=== PATIENT | female | born 1965 | race Caucasian/White ===

== ENCOUNTER → 2017-12-20 | Outpatient (CLI) | payer MEDICARE ==
--- NOTE | 2017-12-24 10:54 | MM ---
Reason for exam: screening (asymptomatic). Last mammogram was performed 4 years and 3 months ago. History: Patient is nulliparous. Family history of breast cancer in mother at age 64. Physical Findings: A clinical breast exam by your physician is recommended on an annual basis and results should be correlated with mammographic findings. MG 3D Screening Mammo W/Cad Bilateral CC and MLO view(s) were taken. Prior study comparison: September 26, 2013, bilateral digital screening mammo w/CAD. February 27, 2012, bilateral digital screening mammo w/CAD. The breast tissue is heterogeneously dense. This may lower the sensitivity of mammography. Stable skin calcifications. Nodule upper outer right breast 6.7cm from nipple. ASSESSMENT: Incomplete: need additional imaging evaluation, BI-RAD 0 RECOMMENDATION: Special view mammogram and ultrasound of the right breast. [facility] will attempt to contact patient to return for supplemental views and ultrasound.
== END | disposition home or self-care (01) ==
LOC: RADMAMWWP 15:58
PROVIDERS: ATTEND Family Medicine
DX: Z12.31 Encounter for screening mammogram for malignant neoplasm of breast (principal)
CPT/HCPCS: 77063; 77067

== ENCOUNTER → 2017-12-27 | Outpatient (CLI) | payer MEDICARE ==
--- NOTE | 2017-12-28 09:16 | MM ---
Reason for exam: additional evaluation requested from abnormal screening. Last mammogram was performed less than 1 month ago. History: Patient is nulliparous. Family history of breast cancer in mother at age 64. Physical Findings: Nurse did not find any significant physical abnormalities on exam. MG 3D Work Up W/Cad RT CC and MLO view(s) were taken of the right breast. Prior study comparison: December 20, 2017, bilateral MG 3d screening mammo w/cad. September 26, 2013, bilateral digital screening mammo w/CAD. The breast tissue is heterogeneously dense. This may lower the sensitivity of mammography. Nodule upper outer quadrant right breast persists. Ultrasound is recommended. These results were verbally communicated with the patient and result sheet given to the patient on 12/27/17. ASSESSMENT: Incomplete: need additional imaging evaluation, BI-RAD 0 RECOMMENDATION: Ultrasound of the right breast.
--- NOTE | 2017-12-28 09:18 | USB ---
Reason for exam: additional evaluation requested from abnormal screening. History: Patient is nulliparous. Family history of breast cancer in mother at age 64. US Breast Workup Limited RT Right breast ultrasound demonstrates a 1.1 x 0.4 x 0.8cm mixed lesion at 10 o'clock. These results were verbally communicated with the patient and result sheet given to the patient on 12/27/17. ASSESSMENT: Suspicious, BI-RAD 4 RECOMMENDATION: Ultrasound core biopsy of the right breast. Called Dr. Yao with mammographic findings and has scheduled an appointment for the patient for 02/13/18 at 1:[address] Weston. Biopsy scheduled for 01/03/18 at 2:00. PRELIMINARY REPORT CALLED AND FAXED TO DR. WESTON ON 12/28/17.
== END | disposition home or self-care (01) ==
LOC: RADMAMWWP 14:36
PROVIDERS: ATTEND Family Medicine
DX: R92.8 Other abnormal and inconclusive findings on diagnostic imaging of breast (principal)
CPT/HCPCS: 77065; 76642; G0279

== ENCOUNTER → 2018-01-03 | Day surgery (SDC) | payer MEDICARE ==
[2018-01-03 13:39] VITALS: RESP 16; BMI 34.9
--- NOTE | 2018-01-03 14:58 | USB ---
EXAMINATION TYPE: US biopsy breast VAD RT, MG diagnostic mammo RT wo CAD DATE OF EXAM: 01/03/2018 CLINICAL HISTORY: R92.8 ABNORMAL MAMMOGRAM. Abnormal ultrasound. TECHNIQUE: Ultrasound guided core biopsy of right breast with clip placement and follow-up two-view m ammogram. COMPARISON: Right breast ultrasound and mammogram December 27, 2017 and older studies. FINDINGS: The procedure of ultrasound guided core biopsy was explained to the patient. Benefits, alt ernatives, and risks were discussed. An informed consent was then obtained. The patient was placed in supine positioning for imaging and for the procedure. Preprocedure ultraso und redemonstrates oval wider greater than trough heterogeneous slightly hypoechoic area measuring 9 x 5 mm 10:00 position zone B seen in the right breast. The overlying skin was prepped and draped in u sual sterile fashion. Lidocaine buffered with bicarbonate was used as anesthetic into the skin and s ubcutaneous tissue up to area of concern in the right breast. Lidocaine with epinephrine is used as a nesthetic into the deeper tissue. Under ultrasound guidance, a 12-gauge vacuum assisted biopsy gun device was used to obtain 3 core [address]es. Following this, a biopsy clip was left in lesion. The patient tolerated the procedure well without any immediate complication. The patient was kept in the radiology department for short stay after the procedure and then discharged home in stable condi tion. Postprocedure mammogram shows successful deployment of clip at area of mammogram concern upper outer aspect anterior to middle depth. Previously visualized oval lesion is not clearly identified on 2-D m ammogram views. IMPRESSION: Successful, uncomplicated ultrasound guided core biopsy of area of concern in the right b reast, full pathology results to follow. Low to intermediate index of suspicion noted at time of procedure.
[2018-01-03 16:34] VITALS: BP 110/81; PULSE 101; TEMP 99
== END ==
LOC: RADUSWWP 13:08
PROVIDERS: ATTEND Surgery
DX: D24.1 Benign neoplasm of right breast (principal); N60.31 Fibrosclerosis of right breast
CPT/HCPCS: 77065; 19083; A4648; J2001; 88305

== ENCOUNTER → 2018-08-08 | Outpatient (CLI) | payer MEDICARE ==
--- NOTE | 2018-08-08 14:36 | MM ---
Reason for exam: follow-up at short interval from prior study. Last mammogram was performed 7 months ago. History: Patient is postmenopausal and is nulliparous. Family history of breast cancer in mother at age 64. Benign US biopsy breast VAD RT of the right breast, January 03, 2018. Physical Findings: Nurse did not find any significant physical abnormalities on exam. MG 3D Diag Mammo W/Cad RT CC and MLO view(s) were taken of the right breast. Prior study comparison: January 03, 2018, right breast MG diagnostic mammo RT wo CAD. December 27, 2017, right breast MG 3d work up w/cad RT. There are scattered fibroglandular densities. These results were verbally communicated with the patient and result sheet given to the patient on 08/08/18. ASSESSMENT: Benign, BI-RAD 2 RECOMMENDATION: Routine screening mammogram of both breasts in 4 months.
== END ==
LOC: RADMAMWWP 13:18
PROVIDERS: ATTEND Surgery
DX: R92.8 Other abnormal and inconclusive findings on diagnostic imaging of breast (principal)
CPT/HCPCS: 77065; G0279; 77061

== ENCOUNTER → 2019-03-25 | Outpatient (CLI) | payer MEDICARE ==
--- NOTE | 2019-03-26 09:39 | MM ---
Reason for exam: screening (asymptomatic). Last mammogram was performed 8 months ago. History: Patient is postmenopausal and is nulliparous. Family history of breast cancer in mother at age 64. Benign US biopsy breast VAD RT of the right breast, January 03, 2018. Physical Findings: A clinical breast exam by your physician is recommended on an annual basis and results should be correlated with mammographic findings. MG 3D Screening Mammo W/Cad Bilateral CC and MLO view(s) were taken. Prior study comparison: August 08, 2018, right breast MG 3d diag mammo w/cad RT. January 03, 2018, right breast MG diagnostic mammo RT wo CAD. The breast tissue is heterogeneously dense. This may lower the sensitivity of mammography. Benign appearing calcifications in the left breast. Previous mammotome biopsy in the right breast. There is chronic nodularity bilaterally. No significant changes when compared with prior studies. ASSESSMENT: Benign, BI-RAD 2 RECOMMENDATION: Routine screening mammogram of both breasts in 1 year.
== END | disposition home or self-care (01) ==
LOC: RADMAMWWP 14:35
PROVIDERS: ATTEND Family Medicine
DX: Z12.31 Encounter for screening mammogram for malignant neoplasm of breast (principal)
CPT/HCPCS: 77063; 77067

== ENCOUNTER → 2022-04-06 | Outpatient (CLI) | payer MEDICARE ==
[2022-04-06 16:36] LABS: INR 0.9 (<1.2); Partial Thromboplastin Time 25.9 sec (22.0-30.0); Prothrombin Time 10.2 sec (9.0-12.0)
[2022-04-06 22:57] LABS: MCH 29.7 pg (27.0-32.0); MCHC 32.6 g/dL (32.0-37.0); MCV 91.1 fL (80.0-97.0); Mean Platelet Volume 10.7 fL (9.5-12.2); NRBC Per 100 WBC 0 /100 WBCS (0.0-0.0); Platelet Count 288 X 10*3/uL (140-440); RBC 4.72 X 10*6/uL (4.10-5.20); WBC 7.57 X 10*3/uL (4.50-10.00)
[2022-04-07 00:49] LABS: Appearance,Urine Clear (Clear); Bilirubin,Urine Negative (Negative); Blood,Urine Negative (Negative); Color,Urine Yellow (Yellow); Ketones,Urine Negative (Negative); Nitrite,Urine Negative (Negative); Specific Gravity,Urine 1.009 (1.001-1.030); Urobilinogen,Urine 0.2 (0.2,1.0)
== END | disposition home or self-care (01) ==
LOC: LABPAT 15:37
PROVIDERS: ATTEND Orthopaedic Surgery
DX: Z01.812 Encounter for preprocedural laboratory examination (principal); M16.12 Unilateral primary osteoarthritis, left hip
CPT/HCPCS: 81003; 85027; 85610; 85730; 87070

== ENCOUNTER → 2022-04-07 | Outpatient (CLI) | payer MEDICARE ==
[2022-04-08 00:14] LABS: African American GFR (CKD) 109.6 (60.0-200.0); Albumin/Globulin Ratio 2.23 (1.60-3.17); Anion Gap 18.1 mmol/L (10.00-18.00); BUN/Creat Ratio 13.08 Ratio (12.00-20.00); Blood Urea Nitrogen 9.3 mg/dL (9.0-27.0); Calcium 9.7 mg/dL (8.7-10.3); Carbon Dioxide 24.3 mmol/L (20.0-27.5); Globulin 2.2 g/dL (1.6-3.3); Non-African American GFR(CKD) 94.5 (60.0-200.0); Potassium 4.2 mmol/L (3.5-5.5); Total Bilirubin 0.2 mg/dL (0.30-1.20); Total Protein 7.2 g/dL (6.2-8.2)
== END | disposition home or self-care (01) ==
LOC: LABPAT 14:54
PROVIDERS: ATTEND Orthopaedic Surgery
DX: Z01.812 Encounter for preprocedural laboratory examination (principal); M16.12 Unilateral primary osteoarthritis, left hip
CPT/HCPCS: 80053

== ENCOUNTER 2022-04-12 10:54 | Day surgery (SDC) | payer MEDICARE ==
[2022-04-05 14:43] VITALS: BMI 29.3
[~2022-04-12 10:54] MED LIST: ACETAMINOPHEN TAB 500 MG TAB PO PRN; DOCUSATE 100 MG CAP PO PRN; FAMOTIDINE 20 MG/2 ML VIAL IVP PRN; HYDROmorphone 0.5 MG/0.5 ML SYRINGE IVP PRN; KETOROLAC 15 MG/ML 1 ML VIAL IVP PRN; MIDAZOLAM 2 MG/2 ML VIAL IV PRN; ONDANSETRON 4 MG/2 ML VIAL IVP PRN; Pre Op ABX Message 1 EACH MISC MISCELLANE ONE; ROPIVACAINE/EPI/CLONIDINE/KET 50 ML SYRINGE MISCELLANE PRN; TRANEXAMIC ACID 1,000 MG in SODIUM CHLORIDE 0.9% 100 ML IVPB ONE; TRANEXAMIC ACID IN NACL,ISO-OS 1,000 MG in SALINE 1 100ML.BAG IVPB PRN; oxyCODONE ER 10 MG TAB.ER.12H PO PRN
[2022-04-12] MEDS: LACTATED RINGERS 1,000 ML IV SCH (11:40)
[2022-04-12] MEDS ORDERED: MIDAZOLAM 2 MG/2 ML VIAL IVP ONE (12:27)
[2022-04-12] MEDS ORDERED: fentaNYL (PF) 50 MCG/ML 2 ML AMP IVP ONE (12:27)
[2022-04-12] MEDS ORDERED: SODIUM CHLORIDE 0.9% (PF) 10 ML VIAL ONE (12:38)
[2022-04-12] MEDS ORDERED: ROPIVACAINE 5 MG/ML 30 ML VIAL ONE (12:38)
[2022-04-12] MEDS ORDERED: LIDOCAINE 2% INJ 20 MG/ML (2 ML VIAL) ONE (12:38)
[2022-04-12] MEDS ORDERED: NEOSTIGMINE 1 MG/ML 10 ML VIAL ONE (12:38)
[2022-04-12] MEDS ORDERED: ROCURONIUM 10 MG/ML (5 ML VIAL) IV ONE (12:38)
[2022-04-12] MEDS ORDERED: PROPOFOL 10 MG/ML 20 ML VIAL IV ONE (12:38)
[2022-04-12] MEDS ORDERED: GLYCOPYRROLATE 0.2 MG/ML 2 ML VIAL ONE (12:38)
[2022-04-12] MEDS ORDERED: PHENYLEPHRINE-0.9% NACL SYG 1,000 MCG/10 ML SYRINGE ONE (12:38)
[2022-04-12] MEDS ORDERED: HYDROmorphone (PF) 1 MG/ML ONE (12:38)
[2022-04-12] MEDS ORDERED: TRANEXAMIC ACID IN NACL,ISO-OS 1,000 MG/100 ML BAG ONE (12:38)
[2022-04-12] MEDS ORDERED: MIDAZOLAM 2 MG/2 ML VIAL ONE (12:38)
[2022-04-12] MEDS ORDERED: SUCCINYLCHOLINE CHLORIDE 100 MG/5 ML SYR IV ONE (12:38)
[2022-04-12] MEDS ORDERED: fentaNYL (PF) 50 MCG/ML 2 ML AMP ONE (12:38)
[2022-04-12] MEDS ORDERED: LACTATED RINGERS 1,000 ML IV ONE (15:07)
--- NOTE | 2022-04-12 15:20 | XR ---
Fluoroscopy HISTORY: Hip replacement 43 seconds fluoroscopy time supplied to the referring clinician. 5 intraoperative C-arm images docum ent the procedure. See dictated report from orthopedic surgery.
[2022-04-12] MEDS ORDERED: NALOXONE 0.4 MG/ML 1 ML VIAL IV PRN (15:28)
[2022-04-12] MEDS ORDERED: HYDROmorphone 0.5 MG/0.5 ML SYRINGE IVP PRN ×2 (15:28)
[2022-04-12] MEDS ORDERED: HYDROcodone/APAP 5-325MG 1 EACH TAB PO PRN ×2 (15:28)
[2022-04-12] MEDS ORDERED: hydrOXYzine pamoate 25 MG CAP PO PRN (15:28)
--- NOTE | 2022-04-12 15:34 | P.OP ---
Date of Procedure: 04/12/22 Preoperative Diagnosis: 1. Severe left hip osteoarthritis 2. Former cigarette smoker, quit 03/08/2022 3. Bipolar/Anxiety Postoperative Diagnosis: same Procedure(s) Performed: Left direct anterior total hip arthroplasty Implants: 1. [place] Trident II Acetabular Cup, Size #50 2. Abi Accolade II Insignia Size #5 Femoral Stem, High Offset 3. Biolox Delta 36 mm femoral head, -2.5 mm, neck Anesthesia: GETA Surgeon: Jonathan Reich [employer] Equipment Sales Manager #1: Manuel Romero Estimated Blood Loss (ml): 200 IV fluids (ml): 1,200 Pathology: none sent Condition: stable Disposition: PACU Indications for Procedure: I had a long discussion with the patient in the office on the potential risks and complications of an elective total hip replacement through a direct anterior approach. Risks discussed include, but are certainly not limited to, risks from anesthesia, superficial infection requiring local wound care or antibiotics, deep helder-prosthetic joint infection and the treatment required to eradicate infection, intraoperative fracture, postoperative periprosthetic fracture, damage to local blood vessels or nerves particularly the lateral femoral cutaneous nerve, delayed wound healing requiring local wound care or possibly surgical debridement, hip dislocation, leg length discrepancy, soft tissue irritation around the total hip implant such as iliopsoas tendinitis or trochanteric bursitis, wear and osteolysis from the implants, squeaking or audible noises, groin pain, thigh pain, heterotopic ossification, stiffness, aseptic loosening of the implants, dissatisfaction with surgical outcome, need for revision surgery, DVT, PE, swelling of the operative extremity, acute coronary event, stroke, failure to thrive, and possibly loss of life or limb. The patient understands that while these are the most common complications after an elective hip replacement there are certainly other less common complications possible. They were given ample time to ask questions regarding the potential c omplications of a hip replacement. Following our discussion the patient provided their verbal and written consent to go forward with an elective total hip replacement. Operative Findings: Pre-operatively the patient noticed that her left leg was significantly shorter than her right. Intraoperatively before being placed on the hand table her left leg felt approximately 1-2 cm short compared to the right leg. Description of Procedure: The patient was identified in the preoperative holding area and the correct hip was marked with my initials. I reviewed the procedure and consent with the patient. All of their questions were answered. The patient was then brought back into the operating room by anesthesia. While on the [facility] anesthesia was administered by the anesthesia team. Preoperative antibiotics and tranexamic acid were also given. After the patient was under anesthesia I examined their ankles to determine their preoperative leg length discrepancy. The skin over the anterior aspect of the hip was shaved to remove hair over the site of planned incision. Both feet and ankles were padded with webril and boots for the [place] were applied. The patient was then carefully transferred onto the [place] table. A perineal post was immediately placed. The arms were placed on arm holders and were well-padded. Both boots were secured to the spars on the [place] table. The patient was positioned so that the pelvis was centered over the post. Nonsterile drapes were applied. A timeout was performed identifying the correct patient, operative extremity, and procedure. At this point fluoroscopy was brought in to take preoperative images of the pelvis and operative hip. Using the standing AP pelvis from the office as a template, a comparable image was obtained with fluoroscopy. A metallic bar was used to create a bi-ischial line for use as a reference to leg length adjustments during the procedure. Global offset was also measured on both the operative and nonoperative leg. Fluoroscopy was then brought out and a pre-scrub using a chlorhexidine scrub brush was performed. The operative limb was then prepped and draped in the standard sterile fashion. An anterior longitudinal incision was made lateral and distal to the ASIS. The skin and subcutaneous tissues were incised sharply. The underlying tensor fascia was identified and incised in its midportion. The fascia was dissected free from the underlying muscle and the muscle belly was retracted. A blunt tipped cobra retractor was placed over the superior neck under the muscle fibers of the gluteus minimus. The deep enveloping fascia of the tensor was incised. The anterior leash of vessels were then identified and cauterized. The fascia between the rectus and the capsule was then incised and the pre-capsular fat was excised. A second Cobra was placed inferior to the neck. The interval between the rectus and iliocapsularis and the hip capsule was developed and a retractor was placed carefully over the anterior rim of the acetabulum. A T-shaped anterior capsulotomy was performed. The superior capsular leaflet was left in place in the inferior capsular flap was excised. The Cobra retractors were placed intracapsularly. We then made a femoral neck osteotomy according to preoperative and intraoperative templating and confirmed the level of the osteotomy using fluoroscopic imaging. The femoral head was removed, passed off to the back table, and sized. The superior capsular flap was excised. Retractors were placed circumferentially exposing the acetabulum. We then circumferentially debrided the acetabulum free of labrum and osteophytes. The pulvinar was removed to fully visualize the cotyloid fossa. We then sequentially reamed to achieve peripheral fit and excellent bleeding subchondral bone. The socket was thoroughly irrigated. The acetabular component was impacted into the appropriate position using fluoroscopy to guide version, inclination, and depth of insertion taking care to have a comparable image of the AP pelvis to the standing image taken in the office. An excellent press-fit was achieved and final position was confirmed using fluoroscopy. The press fit was augmented with bony cancellus dome screws. The liner was then impacted into the socket. Attention was then turned to the femur. The remnant dorsal lateral capsule was excised. The short external rotators were visible and protected. A bone hook was used to confirm appropriate translation of the trochanter away from the acetabulum. The leg was then extended and adducted and the bone hook was used to elevate the femur for broaching. A box osteotome and blunt tipped canal sound was then utilized to gain access to the femoral canal. We then sequentially broached the femur in appropriate anteversion until excellent torsional stability was achieved. The neck cut was brought flush to the trial broach with a calcar planar. A trial neck and head were then placed onto the broach and the hip was atraumatically reduced under direct visualization. External rotation to 90 was performed to assess stability. Fluoroscopy was brought in. An AP and lateral fluoroscopic image of the proximal femur was obtained to assess position and fill of the trial broach. An AP of the pelvis was then obtained and matched to the preoperative image taken. A bi-ischial bar was then placed and measurements were taken to assess changes in length and offset. The hip was then carefully dislocated, the proximal femur was exposed, and the trial implants were removed. The wound and proximal femur was thoroughly irrigated using sterile saline and pulsatile lavage. The final femoral implant was dispensed and gently tapped into place generating an e xcellent press-fit. The trunnion was cleansed and the final head was tapped into place to engage the Sanchez taper. The acetabulum was irrigated and visualized to be free of debris. The hip was carefully reduced. Stability was checked clinically with external rotation to 90 and there was no evidence of instability. Final fluoroscopic images were taken. The wound was then thoroughly irrigated and soaked with a dilute Betadine rinse for 3 minutes. 3 L of sterile saline was irrigated through the wound using pulsatile lavage. Local anesthetic cocktail was injected into the soft tissues around the surgical field. A deep drain was placed. The wound was then closed in layers. A sterile dressing was placed over the surgical incision and drain site. The drapes were taken down and the patient was carefully transferred off of the [place] table. Following removal of the boots the leg lengths felt acceptable. The patient was then taken to recovery room having tolerated the procedure well. Manuel Romero PA-C was required as a skilled contact center assistant for patient positioning, surgical exposure, retraction, placement of implants, and closure of the surgical wound. PLAN: The patient can weight-bear as tolerated on the operative extremity. 2 doses of postoperative antibiotics. DVT prophylaxis with aspirin 81 mg twice a day based on preoperative risk stratification. Physical therapy for gait training. Discontinue drain postoperative day #1 if output is less than 100 mL per shift.
[2022-04-12] MEDS ORDERED: diphenhydrAMINE 50 MG/ML 1 ML VIAL IVP ONE (15:55)
[2022-04-12] MEDS: HYDROmorphone 1 MG/ML 1 ML SYRINGE IVP PRN (17:21)
[2022-04-12] MEDS ORDERED: MELATONIN 5 MG TABLET PO PRN (19:00)
[2022-04-12] MEDS ORDERED: ALBUTEROL NEBULIZED 2.5 MG/3 ML INHALATION PRN (19:00)
[2022-04-12] MEDS ORDERED: DICYCLOMINE 10 MG CAP PO PRN (19:00)
[2022-04-12] MEDS ORDERED: ALBUTEROL INHALATION PRN (19:00)
[2022-04-12] MEDS ORDERED: QUEtiapine 100 MG TAB PO SCH (21:00)
[2022-04-12] MEDS ORDERED: FENOFIBRATE 160 MG TAB PO SCH (21:00)
[2022-04-12] MEDS ORDERED: SENNOSIDES-DOCUSATE SODIUM 1 EACH TAB PO SCH (21:00)
[2022-04-12] MEDS ORDERED: ATORVASTATIN 80 MG TAB PO SCH (21:00)
[2022-04-12] MEDS ORDERED: SERTRALINE 100 MG TAB PO SCH (21:00)
[2022-04-12] MEDS: LORazepam 1 MG TAB PO SCH (22:20)
[2022-04-12] MEDS: busPIRone HCl 5 MG TAB PO SCH (22:21)
[2022-04-12] MEDS: ASPIRIN 81 MG PO SCH (22:21)
[2022-04-12] MEDS: lamoTRIgine 100 MG TAB PO SCH (22:21)
[2022-04-12] MEDS: SUCRALFATE 1 GM TAB PO SCH (22:38)
[2022-04-13] MEDS ORDERED: ONDANSETRON 4 MG/2 ML VIAL IVP PRN (02:31)
[2022-04-13] MEDS ORDERED: ONDANSETRON 4 MG/2 ML VIAL IVP STA (02:31)
[2022-04-13] MEDS ORDERED: LEVOTHYROXINE 88 MCG TAB PO SCH (06:30)
[2022-04-13] MEDS: HYDROmorphone 1 MG/ML 1 ML SYRINGE IVP PRN (07:42)
--- NOTE | 2022-04-13 07:42 | P.ANPRN ---
Procedure Note - Anesthesia - Nerve Block Performed Left Erector Spinae Time Out Performed: Yes (12:26) Date of Procedure: 04/12/22 Procedure Start Time: : Procedure Stop Time: :38 Location of Patient: PreOp Indication: Acute Post-Operative Pain, Requested by Surgeon (Dr Reich) Sedation Type: Sedate with meaningful contact maintained Preparation: Sterile Prep Position: Prone Catheter: None Needle Types: Pajunk Needle Gauge: 21 Ultrasound used to visualize needle placement: Yes Ultrasound used to observe medication spread: Yes Injectate: 0.5% Ropivacaine (see comment for volume) (15cc + 5cc PF Normal saline) Blood Aspirated: No Pain Paresthesia on Injection Noted: No Resistance on Injection: Normal Image Stored and Saved: Yes Events: Uneventful and Well Tolerated
[2022-04-13] MEDS: lamoTRIgine 100 MG TAB PO SCH (08:48)
[2022-04-13] MEDS: SUCRALFATE 1 GM TAB PO SCH ×2 (08:49→12:18)
[2022-04-13] MEDS: LORazepam 1 MG TAB PO SCH ×2 (08:49→12:18)
[2022-04-13] MEDS: busPIRone HCl 5 MG TAB PO SCH (08:49)
[2022-04-13] MEDS: ASPIRIN 81 MG PO SCH (08:50)
[2022-04-13 09:27] VITALS: BP 118/73; PULSE 88; RESP 16; TEMP 97.6
[2022-04-13 10:18] LABS: Basophils # (A) 0.03 X 10*3/uL (0.00-0.10); Basophils % (A) 0.3 %; Eosinophils # (A) 0.02 X 10*3/uL (0.04-0.35); Eosinophils % (A) 0.2 %; HCT 29.6 % (37.2-46.3); HGB 9.6 g/dL (12.0-15.0); Immature Grans, Automated 0.6 %; Lymphocytes # (A) 1.21 X 10*3/uL (0.90-5.00); Lymphocytes % (A) 11.9 %; MCH 29.4 pg (27.0-32.0); MCHC 32.4 g/dL (32.0-37.0); MCV 90.8 fL (80.0-97.0); Mean Platelet Volume 10.5 fL (9.5-12.2); Monocytes # (A) 0.82 X 10*3/uL (0.20-1.00); Monocytes % (A) 8.1 %; NRBC Per 100 WBC 0 /100 WBCS (0.0-0.0); Neutrophils # (A) 7.99 X 10*3/uL (1.80-7.70); Neutrophils % (A) 78.9 %; Platelet Count 262 X 10*3/uL (140-440); RBC 3.26 X 10*6/uL (4.10-5.20); RDW 13.1 % (11.5-14.5); WBC 10.13 X 10*3/uL (4.50-10.00)
[2022-04-13] MEDS: LACTATED RINGERS 1,000 ML IV SCH (10:58)
--- NOTE | 2022-04-13 12:22 | P.DS ---
Providers Expected date of discharge: 04/13/22 Attending physician: Jonathan Reich Consults: 04/12/22 15:28 Consult Physician Routine Consulting Provider: Diego Castro Consult Reason/Comments: medical management Do you want consulting provider notified?: Yes Primary care physician: Forest Yao [facility] Course: This is a 56-year-old female who has been followed in our office by Dr. Reich for continued complaints of left hip pain due to left hip osteoarthritis. Treatment options were discussed, and patient elected to undergo a direct anterior left total hip arthroplasty. Patient was seen pre-operatively by Dr. Yao and cleared for surgery. Patient underwent a direct anterior left total hip arthroplasty on 04/12/22. The procedure was performed without complication or sequelae. The patient is doing fairly well postoperatively. Vital signs and labs are stable on postoperative day #1. Patient was examined bedside today. Patient states she is overall doing very well and the pain in his left hip is well-controlled. Hemovac drain was pulled earlier this morning. She has been ambulating with a walker with minimal assistance. She has worked with physical therapy this morning. Patient is tolerating breakfast well. She is voiding without issue. Patient is comfortable being discharged home today. Patient denies chest pain, shortness of breath, nausea, vomiting, fevers, chills. On examination, the patient is sitting up in the bed in no apparent distress. She is alert and orientated 3. On inspection of the left hip, there is a clean, dry, intact surgical dressing in place. There is no bleeding or drainage the dressing. Hemovac drain has been removed. Patient has good strength and ROM of the left ankle and toes. Motor and sensory function is intact of the left lower extremity. Femoral nerve function intact. The dorsalis pedis pulse is easily palpable, the left lower extremity is warm and well perfused with brisk capillary refill. Calf is soft and non-tender to palpation. Patient is discharged home with home health in good condition, pending medical clearance. Patient will follow-up with Dr. Reich in the office in 2 weeks. Please see med rec for accurate list of discharge medication. Plan - Discharge Summary Discharge Rx Participant: Yes New Discharge Prescriptions: New Diclofenac Sodium [Voltaren] 75 mg PO BID 30 Days #60 tab Aspirin 81 mg PO BID 30 Days #60 tab Docusate [Colace] 100 mg PO BID #60 capsule HYDROcodone/APAP 5-325MG [White 5-325] 1 - 2 tab PO Q6HR PRN #40 tab PRN Reason: Pain Omeprazole 40 mg PO DAILY 30 Days #30 cap No Action Acetaminophen-Codeine 300-30mg [Tylenol #3] 2 tab PO Q6H PRN PRN Reason: Pain Sucralfate [Carafate] 1 gm PO QID Meloxicam 15 mg PO DAILY methocarbamoL [Robaxin] 750 mg PO QID hydroCHLOROthiazide [Hydrodiuril] 25 mg PO DAILY Dicyclomine [Bentyl] 10 mg PO TID Lansoprazole [Prevacid] 30 mg PO BID flaxseed oiL [[place]-3 Flaxseed Oil] 1,000 mg PO DAILY gemfibroziL [Lopid] 600 mg PO BID Albuterol Inhaler [Ventolin Hfa Inhaler] 1 - 2 puff INHALATION Q6HR PRN PRN Reason: Wheezing Torsemide [Demadex] 10 mg PO DAILY SILVER sulfADIAZINE Cream [Silvadene 1% Cream] 1 applic TOPICAL BID PRN PRN Reason: burn Propranolol HCl 40 mg PO BID busPIRone HCl [Buspar] 15 mg PO TID Sertraline HCl [Zoloft] 200 mg PO HS lamoTRIgine [LaMICtal] 150 mg PO 0900,2100 Zolpidem [Ambien] 10 mg PO HS Dextroamphetamine/Amphetamine [Adderall] 10 mg PO 0800,1200 LORazepam [Ativan] 2 mg PO QID QUEtiapine [SEROquel] 300 mg PO HS Vitamin E (Dl,Tocopheryl Acet) [Vitamin E (400 Iu = 180 mg)] 400 unit PO DAILY Menopause Support Supplement 1 tab PO BID Magnesium 250 mg PO BID Ergocalciferol [Vitamin D2 (1250 Mcg = 68847 Iu)] 50,000 unit PO FR Multivit with Calcium,Iron,Min [Women's Multivitamin] 1 each PO DAILY Melatonin [Melatonin ER] 20 mg PO DAILY methylPREDNISolone [Medrol] 8 mg PO DAILY PRN PRN Reason: Pain Levothyroxine Sodium [Synthroid] 88 mcg PO QAM Cetirizine HCl [Zyrtec] 10 mg PO QAM Fluticasone Nasal [place] [Flonase Nasal [place]] 1 spray EA NOSTRIL DAILY Atorvastatin [Lipitor] 80 mg PO HS Albuterol Neb Unknown Dose 1 dose INHALATION DIRECTED PRN PRN Reason: Shortness Of Breath Discharge Medication List Acetaminophen-Codeine 300-30mg [Tylenol #3] 2 tab PO Q6H PRN 01/02/18 [History] Albuterol Inhaler [Ventolin Hfa Inhaler] 1 - 2 puff INHALATION Q6HR PRN 01/02/18 [History] Dextroamphetamine/Amphetamine [Adderall] 10 mg PO 0800,1200 01/02/18 [History] Dicyclomine [Bentyl] 10 mg PO TID 01/02/18 [History] LORazepam [Ativan] 2 mg PO QID 01/02/18 [History] Lansoprazole [Prevacid] 30 mg PO BID 01/02/18 [History] Meloxicam 15 mg PO DAILY 01/02/18 [History] Propranolol HCl 40 mg PO BID 01/02/18 [History] SILVER sulfADIAZINE Cream [Silvadene 1% Cream] 1 applic TOPICAL BID PRN 01/02/18 [History] Sertraline HCl [Zoloft] 200 mg PO HS 01/02/18 [History] Sucralfate [Carafate] 1 gm PO QID 01/02/18 [History] Torsemide [Demadex] 10 mg PO DAILY 01/02/18 [History] Zolpidem [Ambien] 10 mg PO HS 01/02/18 [History] busPIRone HCl [Buspar] 15 mg PO TID 01/02/18 [History] flaxseed oiL [[place]-3 Flaxseed Oil] 1,000 mg PO DAILY 01/02/18 [History] gemfibroziL [Lopid] 600 mg PO BID 01/02/18 [History] hydroCHLOROthiazide [Hydrodiuril] 25 mg PO DAILY 01/02/18 [History] lamoTRIgine [LaMICtal] 150 mg PO 0900,2100 01/02/18 [History] methocarbamoL [Robaxin] 750 mg PO QID 01/02/18 [History] Albuterol Neb Unknown Dose 1 dose INHALATION DIRECTED PRN 04/05/22 [History] Atorvastatin [Lipitor] 80 mg PO HS 04/05/22 [History] Cetirizine HCl [Zyrtec] 10 mg PO QAM 04/05/22 [History] Ergocalciferol [Vitamin D2 (1250 Mcg = 40691 Iu)] 50,000 unit PO FR 04/05/22 [History] Fluticasone Nasal [place] [Flonase Nasal [place]] 1 spray EA NOSTRIL DAILY 04/05/22 [History] Levothyroxine Sodium [Synthroid] 88 mcg PO QAM 04/05/22 [History] Magnesium 250 mg PO BID 04/05/22 [History] Melatonin [Melatonin ER] 20 mg PO DAILY 04/05/22 [History] Menopause Support Supplement 1 tab PO BID 04/05/22 [History] Multivit with Calcium,Iron,Min [Women's Multivitamin] 1 each PO DAILY 04/05/22 [History] QUEtiapine [SEROquel] 300 mg PO HS 04/05/22 [History] Vitamin E (Dl,Tocopheryl Acet) [Vitamin E (400 Iu = 180 mg)] 400 unit PO DAILY 04/05/22 [History] methylPREDNISolone [Medrol] 8 mg PO DAILY PRN 04/05/22 [History] Aspirin 81 mg PO BID 30 Days #60 tab 04/13/22 [Rx] Diclofenac Sodium [Voltaren] 75 mg PO BID 30 Days #60 tab 04/13/22 [Rx] Docusate [Colace] 100 mg PO BID #60 capsule 04/13/22 [Rx] HYDROcodone/APAP 5-325MG [White 5-325] 1 - 2 tab PO Q6HR PRN #40 tab 04/13/22 [Rx] Omeprazole 40 mg PO DAILY 30 Days #30 cap 04/13/22 [Rx] Follow up Appointment(s)/Referral(s): Forest Yao III, MD [Primary Care Provider] - 1 Week (office not answering. Please call to schedule appointment) [facility] [NON-STAFF] - As Needed (Walker) [facility], [NON-STAFF] - As Needed Jonathan Reich MD [Medical Doctor] - 04/27/22 9:35 am Activity/Diet/Wound Care/Special Instructions: Weight bear as tolerated on operative extremity with a walker. Keep operative dressings intact until follow-up in the office. Call the office if dressing becomes saturated or falls off. Take pain medication as needed. Take aspirin 81mg twice a day for blood clot prevention. Follow-up at [facility] in two weeks. Call the office with any questions or concerns, Discharge Disposition: HOME WITH HOME HEALTH SERVICES
[2022-04-13] MEDS ORDERED: methocarbamoL 750 MG TAB PO SCH (13:00)
--- NOTE | 2022-04-13 13:06 | P.CONS ---
History of Present Illness - History of Present Illness This is a pleasant 56 results female with past medical history of fibromyalgia, GERD, hyperlipidemia, hypertension, osteoarthritis, seizure disorder, hypothyroidism. History of bipolar disorder, depression and anxiety and ADD She was admitted by orthopedic team for severe osteoarthritis and she underwent left total hip arthroplasty. Today is postoperative day #1. Patient was seen in walking in her room in the hallway with no difficulty with the physical therapist. Denies any chest pain or dyspnea. No abdominal pain. No urinary complaints. No fever today She was complaining of from muscle spasm and she wanted only her Robaxin To be reordered Vitals are stable. Patient is afebrile she has fever yesterday of 100.1 Labs from today showing the same thing 0.1, hemoglobin 9.6. Rest of CBC is unremarkable. Review of Systems Review of systems CONSTITUTIONAL: No fever, no malaise, no fatigue. HEENT: No recent visual problems or hearing problems. Denied any sore throat. CARDIOVASCULAR: No orthopnea, PND, no palpitations, no syncope. PULMONARY: No shortness of breath, no cough, no hemoptysis. GASTROINTESTINAL: No diarrhea, no nausea, no vomiting, no abdominal pain. Normoactive bowel sounds. NEUROLOGICAL: No headaches, no weakness, no numbness. HEMATOLOGICAL: Denies any bleeding or petechiae. GENITOURINARY: Denies any burning micturition, frequency, or urgency. MUSCULOSKELETAL/RHEUMATOLOGICAL: Denies any joint pain, swelling, or any muscle pain. ENDOCRINE: Denies any polyuria or polydipsia. Past Medical History Past Medical History: Asthma, Fibromyalgia, GERD/Reflux, GI Bleed, Hyperlipidemia, Hypertension, Osteoarthritis (OA), Pneumonia, Seizure Disorder, Thyroid Disorder Additional Past Medical History / Comment(s): IBS, hx minor upper GI bleed, chronic back pain, tremors, small hiatal hernia, hx grand mal seizures starting at age 4 months, last seizure 04/16/83, slightly hard of hearing left ear. History of Any Multi-Drug Resistant Organisms: MRSA Year Discovered:: 1995 MDRO Source:: Respiratory Past Surgical History: Back Surgery, Uterine Ablation Additional Past Surgical History / Comment(s): Laser surgery on cervix, multiple D&C's, miscarriage, wisdom teeth extracted. Past Anesthesia/Blood Transfusion Reactions: Postoperative Nausea & Vomiting (PONV) Past Psychological History: ADD/ADHD, Anxiety, Bipolar, Depression Additional Psychological History / Comment(s): ADHD Smoking Status: Former smoker Past Alcohol Use History: None Reported Additional Past Alcohol Use History / Comment(s): Quit smoking 03/08/22. Smoked on and off for at least 30 yrs. Using Nicotine lozenges as needed. Past Drug Use History: None Reported - Past Family History Mother Family Medical History: Cancer Additional Family Medical History / Comment(s): Breast and cervical cancer. Medications and Allergies Home Medications Medication Instructions Recorded Confirmed Type Acetaminophen-Codeine 300-30mg 2 tab PO Q6H PRN 01/02/18 04/12/22 History [Tylenol #3] Albuterol Inhaler [Ventolin Hfa 1 - 2 puff INHALATION Q6HR PRN 01/02/18 04/12/22 History Inhaler] Dextroamphetamine/Amphetamine 10 mg PO 0800,1200 01/02/18 04/12/22 History [Adderall] Dicyclomine [Bentyl] 10 mg PO TID 01/02/18 04/12/22 History LORazepam [Ativan] 2 mg PO QID 01/02/18 04/12/22 History Lansoprazole [Prevacid] 30 mg PO BID 01/02/18 04/12/22 History Meloxicam 15 mg PO DAILY 01/02/18 04/12/22 History Propranolol HCl 40 mg PO BID 01/02/18 04/12/22 History SILVER sulfADIAZINE Cream 1 applic TOPICAL BID PRN 01/02/18 04/12/22 History [Silvadene 1% Cream] Sertraline HCl [Zoloft] 200 mg PO HS 01/02/18 04/12/22 History Sucralfate [Carafate] 1 gm PO QID 01/02/18 04/12/22 History Torsemide [Demadex] 10 mg PO DAILY 01/02/18 04/12/22 History Zolpidem [Ambien] 10 mg PO HS 01/02/18 04/12/22 History busPIRone HCl [Buspar] 15 mg PO TID 01/02/18 04/12/22 History flaxseed oiL [[place]-3 Flaxseed Oil] 1,000 mg PO DAILY 01/02/18 04/12/22 History gemfibroziL [Lopid] 600 mg PO BID 01/02/18 04/12/22 History hydroCHLOROthiazide [Hydrodiuril] 25 mg PO DAILY 01/02/18 04/12/22 History lamoTRIgine [LaMICtal] 150 mg PO 0900,2100 01/02/18 04/12/22 History methocarbamoL [Robaxin] 750 mg PO QID 01/02/18 04/12/22 History Albuterol Neb Unknown Dose 1 dose INHALATION DIRECTED PRN 04/05/22 04/12/22 History Atorvastatin [Lipitor] 80 mg PO HS 04/05/22 04/12/22 History Cetirizine HCl [Zyrtec] 10 mg PO QAM 04/05/22 04/12/22 History Ergocalciferol [Vitamin D2 (1250 50,000 unit PO FR 04/05/22 04/12/22 History Mcg = 11050 Iu)] Fluticasone Nasal [place] [Flonase 1 spray EA NOSTRIL DAILY 04/05/22 04/12/22 History Nasal [place]] Levothyroxine Sodium [Synthroid] 88 mcg PO QAM 04/05/22 04/12/22 History Magnesium 250 mg PO BID 04/05/22 04/12/22 History Melatonin [Melatonin ER] 20 mg PO DAILY 04/05/22 04/12/22 History Menopause Support Supplement 1 tab PO BID 04/05/22 04/12/22 History Multivit with Calcium,Iron,Min 1 each PO DAILY 04/05/22 04/12/22 History [Women's Multivitamin] QUEtiapine [SEROquel] 300 mg PO HS 04/05/22 04/12/22 History Vitamin E (Dl,Tocopheryl Acet) 400 unit PO DAILY 04/05/22 04/12/22 History [Vitamin E (400 Iu = 180 mg)] methylPREDNISolone [Medrol] 8 mg PO DAILY PRN 04/05/22 04/12/22 History Aspirin 81 mg PO BID 30 Days #60 tab 04/13/22 Rx Diclofenac Sodium [Voltaren] 75 mg PO BID 30 Days #60 tab 04/13/22 Rx Docusate [Colace] 100 mg PO BID #60 capsule 04/13/22 Rx HYDROcodone/APAP 5-325MG [[place] 1 - 2 tab PO Q6HR PRN #40 tab 04/13/22 Rx 5-325] Omeprazole 40 mg PO DAILY 30 Days #30 cap 04/13/22 Rx Allergies Allergy/AdvReac Type Severity Reaction Status Date / Time Iodinated Contrast Media Allergy Anaphylaxis Verified 04/12/22 11:23 [Iodinated Contrast- Oral and IV Dye] amoxicillin [From Augmentin] AdvReac Diarrhea Verified 04/12/22 11:23 clavulanic acid AdvReac Diarrhea Verified 04/12/22 11:23 [From Augmentin] gabapentin [From Neurontin] AdvReac Unknown Verified 04/12/22 11:23 prednisone AdvReac Unknown Verified 04/12/22 11:23 risperidone AdvReac "Pituitary Verified 04/12/22 11:23 tumor." Physical Exam Vitals: Vital Signs Temp Pulse Pulse Pulse Pulse Resp BP 04/13/22 08:00 97.6 F 88 16 118/73 04/13/22 07:30 120 H 18 04/13/22 07:18 118 H 18 04/13/22 02:00 99.2 F 100 15 103/64 04/12/22 20:00 97.8 F 81 16 103/68 04/12/22 18:00 67 129/83 04/12/22 17:45 74 131/85 04/12/22 17:30 76 127/86 04/12/22 17:15 77 115/82 04/12/22 17:00 72 111/78 04/12/22 16:45 72 111/77 04/12/22 16:30 97.4 F L 76 18 113/78 04/12/22 16:05 82 18 120/76 04/12/22 15:50 84 18 110/65 04/12/22 15:35 83 18 116/66 04/12/22 15:23 100.1 F H 99 18 121/83 04/12/22 12:38 76 16 143/83 04/12/22 11:21 97.8 F 18 131/90 Pulse Ox 04/13/22 08:00 95 04/13/22 07:30 04/13/22 07:18 96 04/13/22 02:00 98 04/12/22 20:00 99 04/12/22 18:00 100 04/12/22 17:45 100 04/12/22 17:30 100 04/12/22 17:15 100 04/12/22 17:00 99 04/12/22 16:45 99 04/12/22 16:30 100 04/12/22 16:05 100 04/12/22 15:50 100 04/12/22 15:35 04/12/22 15:23 100 04/12/22 12:38 98 04/12/22 11:21 97 Intake and Output 04/12/22 04/13/22 04/13/22 22:59 06:59 14:59 Intake Total 436 1080 Output Total 200 130 Balance 236 950 Intake: IV 140 Lactated Ringers 1,000 ml 40 @ 20 mls/hr IV .Q24H TO Rx#:[id number] Oral 296 1080 Output: Drainage 130 Left Hip 130 Estimated Blood Loss 200 Other: Voiding Method Toilet # Voids 1 Weight 88.5 kg GENERAL: The patient is alert and oriented x3, not in any acute distress. Well developed, well nourished. HEENT: Pupils are round and equally reacting to light. EOMI. No scleral icterus. No conjunctival pallor. Normocephalic, atraumatic. No pharyngeal erythema. No thyromegaly. CARDIOVASCULAR: S1 and S2 present. No murmurs, rubs, or gallops. PULMONARY: Chest is clear to auscultation, no wheezing or crackles. ABDOMEN: Soft, nontender, nondistended, normoactive bowel sounds. No palpable organomegaly. -MUSCULOSKELETAL: No joint swelling or deformity. left sided lower extremity surgical wound, with dressing in place. Rest of exam is deferred to surgery team EXTREMITIES: No cyanosis, clubbing, or pedal edema. NEUROLOGICAL: Gross neurological examination did not reveal any focal deficits. SKIN: No rashes. no petechiae. Results CBC & Chem 7: 04/13/22 06:00 Assessment and Plan Assessment: Severe as osteoarthritis status post left total hip replacement. today is postop day #1 Fever 1, most likely is postop fever. Unlikely due to infection however patient needs to be closely monitored. Postop anemia, expected and asymptomatic Fibromyalgia History of bipolar disorder Hypertension History of seizure disorder History of hypothyroidism History of bipolar disorder, depression and anxiety and ADD, no an active issue Plan: This is a pleasant 56 years old female she is status post total hip replacement. Patient CBC is reviewed and shows one-time episode of fever, keep close altagracia toring for vitals and WBC count Continue with pain management as per primary team Continue with DVT prophylaxis as per primary team I talked to the patient about the need to close outpatient follow-up with PCP Dr. Yao in one week, however patient declined and she was to follow up with him in 2 weeks. Risks and benefits and alternatives are explained for the patient GI prophylaxis These recommendations are discussed with the bedside nurse thank you for consulting us
== END 2022-04-13 13:50 | disposition home health service (06) ==
LOC: OR 10:54 → 4SSUR 16:06 → OR 04-13 13:50
PROVIDERS: ATTEND Orthopaedic Surgery
DX: M16.12 Unilateral primary osteoarthritis, left hip (principal); F31.9 Bipolar disorder, unspecified; G40.909 Epilepsy, unspecified, not intractable, without status epilepticus; J45.909 Unspecified asthma, uncomplicated; K21.9 Gastro-esophageal reflux disease without esophagitis; K58.9 Irritable bowel syndrome, unspecified; F90.9 Attention-deficit hyperactivity disorder, unspecified type; G47.00 Insomnia, unspecified; I10 Essential (primary) hypertension; E78.5 Hyperlipidemia, unspecified; E03.9 Hypothyroidism, unspecified; Z87.891 Personal history of nicotine dependence; K30 Functional dyspepsia; Z97.3 Presence of spectacles and contact lenses; F32.A Depression, unspecified; J98.4 Other disorders of lung; Z87.11 Personal history of peptic ulcer disease; Z98.890 Other specified postprocedural states; Z82.49 Family history of ischemic heart disease and other diseases of the circulatory system; Z79.1 Long term (current) use of non-steroidal anti-inflammatories (NSAID); Z79.890 Hormone replacement therapy; Z79.899 Other long term (current) drug therapy; Z91.041 Radiographic dye allergy status; Z88.0 Allergy status to penicillin; Z88.8 Allergy status to other drugs, medicaments and biological substances; Z91.048 Other nonmedicinal substance allergy status
CPT/HCPCS: 94640; 94760; 97161; 97535; 97165; 64999; 76942; 86900; 86901; 85025; 86850; 73501; 27130; C1776; J2250; J1200; J2710; J0690 ×2; J2405 ×2; J3010; J1170 ×3; J2795; J1885; J2370; J0330; J2704; J2001

== ENCOUNTER → 2023-08-01 | Outpatient (CLI) | payer MEDICARE ==
--- NOTE | 2023-08-02 08:16 | MR ---
EXAMINATION TYPE: MR cervical spine wo con DATE OF EXAM: 08/01/2023 4:28 PM CLINICAL INDICATION:Female, 58 years old with history of M54.2 neck pain, Neck pain for 1 year, heada ches COMPARISON: None. TECHNIQUE: Multi planar, multi sequence imaging was performed utilizing: T1-weighted, T2-weighted, an d turbo inversion recovery imaging of the cervical spine. IV Contrast:(none if empty) FINDINGS: Alignment: The cervical vertebral bodies have preserved heights. Alignment is within normal limits gi laureen patient positioning. Bones: Bone signal is within normal limits. No abnormal bone marrow edema on inversion recovery seque nces. Cord: The spinal cord is unremarkable with regards to their signal intensity and morphology. Discs: Multilevel disc desiccation is present. C2-C3: No significant disc pathology. The spinal canal is patent. Bilateral facet and uncovertebral joint arthropathy are present with mild bilateral neural foraminal stenosis. C3-C4: A disc osteophyte complex is present with mild to moderate spinal canal stenosis. Bilateral f acet and uncovertebral joint arthropathy are present with moderate to severe left and moderate neural foraminal stenosis. C4-C5: A disc osteophyte complex is present with mild to moderate spinal canal stenosis. Bilateral f acet and uncovertebral joint arthropathy are present with moderate bilateral neural foraminal stenosi s. C5-C6: A disc osteophyte complex is present with mild to moderate spinal canal stenosis. Bilateral f acet and uncovertebral joint arthropathy are present with moderate bilateral neural foraminal stenosi s. C6-C7: No significant disc pathology. The spinal canal is patent. Bilateral facet and uncovertebral joint arthropathy are present with moderate bilateral neural foraminal stenosis. C7-T1: No significant disc pathology. The spinal canal is patent. No neural foraminal stenosis. Other: None. IMPRESSION: 1. No evidence for disc herniation or significant spinal canal stenosis. 2. Moderate disc degeneration with associated osteoarthritic changes multilevel neural foraminal sten osis.
== END | disposition home or self-care (01) ==
LOC: RADMRIMAIN 15:26
PROVIDERS: ATTEND Internal Medicine
DX: M99.71 Connective tissue and disc stenosis of intervertebral foramina of cervical region (principal); M47.812 Spondylosis without myelopathy or radiculopathy, cervical region; M50.31 Other cervical disc degeneration, high cervical region
CPT/HCPCS: 72141

== ENCOUNTER → 2023-08-22 | Outpatient (CLI) | payer MEDICARE ==
--- NOTE | 2023-08-23 16:53 | MM ---
Reason for Exam: Screening (asymptomatic). Last mammogram was performed 4 year(s) and 5 month(s) ago. Patient History: Menarche at age 10. Patient has no children. Postmenopausal. 01/03/2018, Benign Core Biopsy on the right side. Mother had breast cancer, age 64. Risk Values: Florecita 5 year model risk: 3.5%. NCI Lifetime model risk: 18.1%. Prior Study Comparison: 01/03/2018 Right Diagnostic Mammogram, [facility]. 08/08/2018 Right Diagnostic Mammogram, [facility]. 03/25/2019 Bilateral Screening Mammogram, [facility]. Tissue Density: The breast tissue is heterogeneously dense. This may lower the sensitivity of mammography. Findings: Analyzed By CAD. Pattern appears symmetrical and stable. No significant interval change. No suspicious groups of microcalcifications, spiculated or lobular masses, architectural distortion or other secondary signs of malignancy are mammographically apparent. Overall Assessment: Benign, BI-RAD 2 Management: Screening Mammogram of both breasts in 1 year. A negative mammogram report should not preclude additional follow up of suspicious palpable abnormalities. Patient should continue monthly self breast exam. A clinical breast exam by your physician is recommended on an annual basis and results should be correlated with mammographic findings. Electronically signed and approved by: Sukhdev Casillas D.O. Radiologis
--- NOTE | 2023-08-27 13:22 | BD ---
EXAMINATION TYPE: Axial Bone Density DATE OF EXAM: 08/22/2023 CLINICAL HISTORY: 58 years old Female. ICD-10 CODE: Z78.0 post menopausal Height: 66.2 in Weight: 198 lbs FRAX RISK QUESTIONS: History of Fracture in Adulthood: lt foot fx age 34 RISK FACTORS HISTORY OF: History of Wrist Fracture: lt wrist fx age 3 Surgery to Hip(left): hip replacement 2021 Family History of Osteoporosis: yes grandmother Active: yes Postmenopausal woman: age 44 MEDICATIONS: Thyroid Medications: yes Which medication: Synthroid How Lon years plus Additional Medications: vit d, oa meds, blood pressure meds, seizure meds, depression meds, EXAM MEASUREMENTS: Bone mineral densitometry was performed using the [email or web address] System. Bone mineral density as measured about the Lumbar spine is: ----- L1-L4(G/cm2): 1.038 T Score Values are as follows: ----- L1: -1.2 ----- L2: -2.1 ----- L3: -0.9 ----- L4: -0.9 ----- L1-L4: -1.2 Z Score Values are as follows: ----- L1: -0.9 ----- L2: -1.8 ----- L3: -0.6 ----- L4: -0.6 ----- L1-L4: -0.9 Bone mineral density has: Decreased -1.0% since study of: 03/08/2009 Bone mineral density about the R hip (g/cm2): 0.720 T Score values are as follows: -----R Neck: -2.2 -----R Total: -3.0 Z Score values are as follows: -----R Neck: -1.5 -----R Total: -2.7 Bone mineral density has: Decreased -27.9% since study of: 03/08/2009 FRAX%s: The graph provided illustrates a 16.3% chance for a major osteoporotic fx and a 2.5% chance f or the hips probability for fx in 10 years time. IMPRESSION: Osteoporosis (T Score less than -2.5). There is increased fracture risk and therapy is usually indicated based on age. Re-Screen 1-2 years. NOTE: T-SCORE=SD OF THE YOUNG ADULT MEAN.
== END | disposition home or self-care (01) ==
LOC: RADMAMWWP 11:36
PROVIDERS: ATTEND Internal Medicine
DX: Z12.31 Encounter for screening mammogram for malignant neoplasm of breast (principal); Z13.820 Encounter for screening for osteoporosis; M85.89 Other specified disorders of bone density and structure, multiple sites; Z78.0 Asymptomatic menopausal state; Z80.3 Family history of malignant neoplasm of breast
CPT/HCPCS: 77063; 77067; 77080